=== PATIENT | female | born 2000 | race African-American/Black ===

== ENCOUNTER 2024-07-05 12:19 | Inpatient (IN) | payer OTHER, SELFPAY ==
[~2024-07-05] VITALS: Ht 165.1 cm; Wt 72.1 kg
[2024-07-05 12:42] LABS: BASO # 0.1 10^3/uL (0.0-0.2); BASO % 1.2 % (0.0-1.0); EOS # 0.1 10^3/uL (0.0-0.5); EOS % 1.6 % (0.0-3.0); HEMATOCRIT 32.9 % (36.0-47.0); HEMOGLOBIN 9.6 g/dl (12.0-15.5); MEAN CORPUSCULAR HEMOGLOBIN 18.8 pg (27.0-33.0); MEAN CORPUSCULAR HGB CONC 29.2 g/dl (32.0-36.5); MEAN CORPUSCULAR VOLUME 64.5 fl (80.0-96.0); MONO # 0.6 10^3/uL (0.0-0.8); MONO % 8.5 % (2.0-8.0); NEUTROPHILS # 3.7 10^3/uL (1.5-8.5); NEUTROPHILS % 57.2 % (36.0-66.0); PLATELET COUNT, AUTOMATED 261 10^3/uL (150-450); WHITE BLOOD COUNT 6.5 10^3/uL (4.0-10.0)
[2024-07-05 12:46] LABS: VENOUS BASE EXCESS -4.4 (-2.0-2.0); VENOUS HCO3 21.8 MMOL/L (23.0-27.0); VENOUS O2 SATURATION 88.9 % (60.0-80.0); VENOUS PARTIAL PRESSURE CO2 45.3 mmHg (38.0-50.0); VENOUS PARTIAL PRESSURE O2 66.1 mmHg (30.0-50.0); VENOUS PH 7.301 UNITS (7.330-7.430); VENOUS STANDARD HCO3 20.6 MMOL/L; VENOUS TOTAL CO2 23.2 MMOL/L (24.0-28.0)
[2024-07-05 13:06] LABS: HCG, SERUM QUALITATIVE NEGATIVE (NEGATIVE)
[2024-07-05 13:13] LABS: ETHYL ALCOHOL (ETHANOL) 0.219 % (0.000-0.010); SALICYLATE LEVEL < 3.0 MG/DL (<30)
[2024-07-05 13:14] LABS: ALBUMIN 3.9 G/DL (3.2-5.2); ALKALINE PHOSPHATASE 68 U/L (46-116); ALT/SGPT < 9 U/L (7.0-40); AST/SGOT 9 U/L (<34); BILIRUBIN,DIRECT < 0.1 MG/DL (<0.4); BILIRUBIN,TOTAL 0.2 MG/DL (0.3-1.2); BLOOD UREA NITROGEN 10 MG/DL (9-23); CARBON DIOXIDE LEVEL 24 MMOL/L (20-31); CHLORIDE LEVEL 111 MMOL/L (98-107); CREATININE FOR GFR 0.67 MG/DL (0.55-1.30); GLOMERULAR FILTRATION RATE > 60.0 (>60); GLUCOSE, FASTING 117 MG/DL (60-100); POTASSIUM SERUM 4.1 MMOL/L (3.5-5.1); SODIUM LEVEL 143 MMOL/L (136-145); TOTAL PROTEIN 7.5 G/DL (5.7-8.2)
[2024-07-05 13:16] LABS: THYROID STIMULATING HORMONE 1.127 uIU/ML (0.55-4.78)
[2024-07-05 13:20] LABS: CPK CREATINE PHOSPHOKINASE 81 U/L (34-145)
[2024-07-05] MEDS: NS 1,000 ML IV ONE (13:41)
[2024-07-05 16:52] LABS: AMPHETAMINES LEVEL URINE NEGATIVE (NEGATIVE); BARBITURATES URINE NEGATIVE (NEGATIVE); BENZODIAZEPINES URINE NEGATIVE (NEGATIVE); CANNABINOIDS URINE NEGATIVE (NEGATIVE); COCAINE METABOLITE URINE NEGATIVE (NEGATIVE); METHADONE URINE NEGATIVE (NEGATIVE); OPIATES URINE NEGATIVE (NEGATIVE); PHENCYCLIDINE URINE NEGATIVE (NEGATIVE)
[2024-07-05] MEDS ORDERED: diphenhydrAMINE 25MG CAP PO PRN (18:40)
[2024-07-05] MEDS ORDERED: MOM 30ML SUSPENSION UDC PO PRN (18:40)
[2024-07-05] MEDS ORDERED: IBUPROFEN 400MG TAB PO PRN (18:40)
[2024-07-05] MEDS ORDERED: MAALOX 30 ML SUSP *UDC PO PRN (18:40)
[2024-07-05] MEDS ORDERED: ACETAMINOPHEN TAB 650MG DOSE (2X325MG) PO PRN (18:40)
[2024-07-05] MEDS ORDERED: TRAZ-252 PO (19:44)
[2024-07-05] MEDS ORDERED: LEXA1TAB PO (19:44)
[2024-07-05] MEDS ORDERED: HOME MED LIST COMPLETE! XX SCH (19:45)
[2024-07-05 21:37] VITALS: BP 110/62; TEMP 98.6; O2SAT 97
[2024-07-06 06:28] VITALS: BP 139/80; TEMP 97.8; O2SAT 97
[2024-07-06 15:42] VITALS: BP 115/66; TEMP 98.9; O2SAT 100
[2024-07-07 06:07] VITALS: BP 119/76; TEMP 97.9; O2SAT 99
[2024-07-07 09:00] VITALS: BP 119/76
[2024-07-07] MEDS ORDERED: LORazepam 2 MG TAB PO PRN (13:15)
[2024-07-07] MEDS: FOLIC ACID 1MG TAB PO SCH (15:10)
[2024-07-07] MEDS: MULTIVITAMINS/MINERALS THERAP 1 TAB PO SCH (15:10)
[2024-07-07] MEDS: THIAMINE 100 MG TAB PO SCH (15:10)
[2024-07-07 15:42] VITALS: BP 138/84; TEMP 98; O2SAT 100
[2024-07-07 16:51] VITALS: BP 138/84
[2024-07-07 17:59] LABS: Trichomonas vaginalis (AMP) NOT DETECTED (NEGATIVE)
[2024-07-07 18:23] LABS: GC DNA AMPLIFICATION NEGATIVE (NEGATIVE)
[2024-07-07] MEDS: traZODone 50 MG TAB PO PRN (20:13)
[2024-07-08 06:23] VITALS: BP 133/75; TEMP 97.1; O2SAT 100
[2024-07-08 15:58] VITALS: BP 134/82; TEMP 98; O2SAT 99
[2024-07-09 06:00] VITALS: BP 167/90; TEMP 97.3
[2024-07-09] MEDS: ESCITALOPRAM OXALATE 10 MG TAB (LEXAPRO) PO SCH (11:48)
[2024-07-09 16:06] VITALS: BP 158/94; TEMP 97.2; O2SAT 100
[2024-07-10 06:36] VITALS: BP 160/79; TEMP 97.8; O2SAT 100
[2024-07-10] MEDS ORDERED: LEXA1TAB PO (09:31)
== END 2024-07-10 11:35 | disposition home or self-care (01) | DRG 885 ==
LOC: EDBD 12:19 → M ED 12:19 → M ED INP 18:37 → M PSY 20:51
PROVIDERS: ADMIT Psychiatry & Neurology Psychiatry; ATTEND Psychiatry & Neurology Psychiatry
DX: F33.9 Major depressive disorder, recurrent, unspecified (principal); R45.851 Suicidal ideations; Z91.410 Personal history of adult physical and sexual abuse; Z79.899 Other long term (current) drug therapy

== ENCOUNTER 2024-08-18 08:19 | Emergency (ER) | payer OTHER ==
[~2024-08-18] VITALS: Ht 165.1 cm; Wt 77.7 kg
[~2024-08-18 08:19] MED LIST: LEXA1TAB PO; TRAZ-252 PO
[2024-08-18 10:30] LABS: BASO # 0.1 10^3/uL (0.0-0.2); BASO % 0.9 % (0.0-1.0); EOS # 0.1 10^3/uL (0.0-0.5); EOS % 1.7 % (0.0-3.0); HEMATOCRIT 30.9 % (36.0-47.0); LYMPH # 1.6 10^3/uL (1.5-5.0); LYMPH % 24.5 % (24.0-44.0); MEAN CORPUSCULAR HEMOGLOBIN 18.5 pg (27.0-33.0); MEAN CORPUSCULAR HGB CONC 29.1 g/dl (32.0-36.5); MEAN CORPUSCULAR VOLUME 63.4 fl (80.0-96.0); MONO # 0.6 10^3/uL (0.0-0.8); MONO % 9.5 % (2.0-8.0); NEUTROPHILS # 4.2 10^3/uL (1.5-8.5); NEUTROPHILS % 62.9 % (36.0-66.0); PLATELET COUNT, AUTOMATED 198 10^3/uL (150-450); RED BLOOD COUNT 4.87 10^6/uL (4.00-5.40); WHITE BLOOD COUNT 6.6 10^3/uL (4.0-10.0)
[2024-08-18 10:32] LABS: APPEARANCE, URINE HAZY (CLEAR); BACTERIA, URINE AUTO NEGATIVE (NEGATIVE); BILIRUBIN, URINE AUTO NEGATIVE (NEGATIVE); BLOOD, URINE BLOOD 3+ (NEGATIVE); COLOR, URINE YELLOW (YELLOW); GLUCOSE, URINE (UA) AUTO NEGATIVE (NEGATIVE); KETONE, URINE AUTO NEGATIVE (NEGATIVE); LEUKOCYTE ESTERASE, URINE AUTO NEGATIVE (NEGATIVE); MUCUS, URINE SMALL (NEGATIVE); NITRITE, URINE AUTO NEGATIVE (NEGATIVE); PROTEIN, URINE AUTO 1+ mg/dL (NEGATIVE); RBC, URINE AUTO TNTC /HPF (0-3); SPECIFIC GRAVITY URINE AUTO 1.023 (1.002-1.035); SQUAMOUS EPITHELIAL CELL UR AU 4 /HPF (0-6); UROBILINOGEN, URINE AUTO 0.2 mg/dL (0.0-2.0); WBC, URINE AUTO 1 /HPF (0-3)
[2024-08-18 13:25] VITALS: BP 140/95; TEMP 98.7; O2SAT 100
== END 2024-08-18 13:32 | disposition home or self-care (01) ==
LOC: M ED 08:19
DX: O20.0 Threatened abortion (principal)

== ENCOUNTER 2024-10-21 10:25 | Emergency (ER) | payer OTHER ==
[~2024-10-21] VITALS: Ht 165.1 cm; Wt 81.6 kg
[2024-10-21] MEDS ORDERED: HYDR-3363 (10:38)
[2024-10-21 11:02] LABS: KETONE, URINE AUTO RFX NEGATIVE (NEGATIVE); MUCUS, URINE RFX SMALL (NEGATIVE); NITRITE, URINE AUTO RFX NEGATIVE (NEGATIVE); RBC, URINE AUTO RFX TNTC /HPF (0-3); SQUAM EPITHELIAL CELL UR AURFX 4 /HPF (0-6)
[2024-10-21 11:04] LABS: LEUKOCYTE ESTERASE UR AUTO RFX 2+ (NEGATIVE); WBC, URINE AUTO RFX TNTC /HPF (0-3)
[2024-10-21] MEDS ORDERED: NITR100C3 PO (11:35)
[2024-10-21 11:39] VITALS: BP 127/94; TEMP 98.2; O2SAT 100
== END 2024-10-21 11:49 | disposition home or self-care (01) ==
LOC: M ED 10:25
DX: N30.00 Acute cystitis without hematuria (principal); F41.9 Anxiety disorder, unspecified

== ENCOUNTER 2024-12-23 19:19 | Emergency (ER) | payer OTHER ==
[~2024-12-23] VITALS: Ht 165.1 cm; Wt 88.3 kg
[~2024-12-23 19:19] MED LIST changes: +HYDR-3363; +NITR100C3 PO
[2024-12-23 21:15] VITALS: BP 172/103; TEMP 99.2; O2SAT 100
[2024-12-23] MEDS ORDERED: OSEL75CA PO (21:33)
[2024-12-23] MEDS ORDERED: ONDA-282 PO (21:33)
[2024-12-23] MEDS: ONDANSETRON 4MG ORAL DISINTEGRATING TAB PO ONE (21:48)
[2024-12-23] MEDS: OSELTAMIVIR PHOSPHATE 75 MG CAP PO ONE (21:48)
== END 2024-12-23 21:49 | disposition home or self-care (01) ==
LOC: M ED 19:19
DX: J09.X2 Influenza due to identified novel influenza A virus with other respiratory manifestations (principal); I10 Essential (primary) hypertension; F32.9 Major depressive disorder, single episode, unspecified; Z79.899 Other long term (current) drug therapy

== ENCOUNTER → 2025-07-10 | Outpatient (REF) ==
[~2025-07-10] MED LIST changes: +ONDA-282 PO; +OSEL75CA PO
[2025-07-12 13:32] LABS: HERPES ZOSTER, VARICELLA IgG 7.14 S/CO (>=1.00); RUBEOLA IgG ANTIBODY > 300.00 AU/mL (>16.49)
== END ==
LOC: M LAB 10:56
PROVIDERS: ATTEND Family Medicine
DX: Z02.89 Encounter for other administrative examinations (principal)

== ENCOUNTER → 2025-07-26 | Outpatient (REF) | LOC: M EMP 09:04 | PROVIDERS: ATTEND Family Medicine | DX: Z01.89 Encounter for other specified special examinations (principal) ==

== ENCOUNTER 2025-08-09 19:36 | Emergency (ER) | payer OTHER ==
[~2025-08-09] VITALS: Ht 165.1 cm; Wt 80.5 kg
[2025-08-09 20:21] LABS: BASO # 0.1 10^3/uL (0.0-0.2); BASO % 0.6 % (0.0-1.0); EOS # 0.2 10^3/uL (0.0-0.5); EOS % 2.9 % (0.0-3.0); LYMPH # 2.3 10^3/uL (1.5-5.0); LYMPH % 29.2 % (24.0-44.0); MONO # 0.7 10^3/uL (0.0-0.8); MONO % 9.1 % (2.0-8.0); NEUTROPHILS # 4.6 10^3/uL (1.5-8.5); NEUTROPHILS % 57.9 % (36.0-66.0); PLATELET COUNT, AUTOMATED 250 10^3/uL (150-450)
[2025-08-09 20:42] LABS: CK-MB VALUE MASS < 1.0 NG/ML (<3.6)
[2025-08-09 20:43] LABS: CALCIUM LEVEL 8.9 MG/DL (8.5-10.1); CARBON DIOXIDE LEVEL 24 MMOL/L (20-31); CHLORIDE LEVEL 107 MMOL/L (98-107); CPK CREATINE PHOSPHOKINASE 62 U/L (34-145); CREATININE FOR GFR 0.69 MG/DL (0.55-1.30); GLOMERULAR FILTRATION RATE > 90.0 (>60); POTASSIUM SERUM 3.8 MMOL/L (3.5-5.1); SODIUM LEVEL 140 MMOL/L (136-145)
[2025-08-09 20:48] LABS: HCG, SERUM QUALITATIVE NEGATIVE (NEGATIVE)
[2025-08-09] MEDS ORDERED: ISOVUE-370 76% 100 ML VIAL As Ordered ONE (22:51)
[2025-08-10] MEDS ORDERED: KETOROLAC 60 MG/2 ML VIAL IM ONE (01:05)
[2025-08-10 01:15] VITALS: BP 139/90; TEMP 98; O2SAT 99
[2025-08-10] MEDS: KETOROLAC 30 MG/ML 1 ML VIAL IV ONE (01:24)
[2025-08-10] MEDS: ACETAMINOPHEN 500 MG TAB PO ONE (01:24)
== END 2025-08-10 01:38 | disposition home or self-care (01) ==
LOC: M ED 19:36
DX: K55.059 Acute (reversible) ischemia of intestine, part and extent unspecified (principal); Z79.899 Other long term (current) drug therapy
CPT/HCPCS: 71275; 74177; 80048; 82550; 82553; 84484; 84703; 85025; 93005; 96374; 99284; J1885; Q9967